=== PATIENT | male | born 1960 | race Caucasian/White ===

== ENCOUNTER → 2017-06-26 | Outpatient (CLI) | payer MEDICARE, OTHER ==
[~2017-06-26] MED LIST: CLONIDINE HCL0.1 MG PO; DAILY VALUE1 EACH PO; METHADONE HCL40 MG PO; OXYCODONE HCL5 MG PO; PERCOCET 5/31 TABLET PO; VALIUM2 MG PO
== END | disposition home or self-care (01) ==
LOC: CDC 12-01 14:30
DX: Z01.810 Encounter for preprocedural cardiovascular examination (principal)
CPT/HCPCS: 93000

== ENCOUNTER 2017-07-11 09:47 | Day surgery (SDC) | payer OTHER ==
[~2017-07-11] VITALS: Ht 180.3 cm; Wt 93.0 kg
[~2017-07-11 09:47] MED LIST changes: +INDERAL20 MG PO; +OXYCODONE HCL E40 MG PO; +VALIUM10 MG PO; -VALIUM2 MG PO
[2017-07-11 10:15] VITALS: BP 103/58
[2017-07-11 16:04] VITALS: BP 116/67
[2017-07-11 19:30] VITALS: BP 108/58
[2017-07-11 23:23] VITALS: BP 91/57
[2017-07-12 03:40] VITALS: BP 95/54
[2017-07-12 07:39] VITALS: BP 108/60
[2017-07-12] MEDS ORDERED: OXYCODONE HCL10 MG PO (08:37)
== END 2017-07-12 11:03 | disposition home or self-care (01) ==
LOC: SDC → 2SOUTH 13:58 → SDC 14:00 → ENRESERV 14:46 → SDC 15:33 → 2EAST 16:03
DX: M24.541 Contracture, right hand (principal); M20.091 Other deformity of right finger(s); M79.644 Pain in right finger(s); G89.29 Other chronic pain; G60.0 Hereditary motor and sensory neuropathy; Z79.891 Long term (current) use of opiate analgesic; F17.200 Nicotine dependence, unspecified, uncomplicated
CPT/HCPCS: 88305; 88311; G0378; J0690; J1100; J1170; J2250; J2405; J3010; J7120; S0020

== ENCOUNTER 2017-10-01 07:02 | Day surgery (SDC) | payer OTHER ==
[~2017-10-01] VITALS: Ht 180.3 cm; Wt 93.0 kg
[~2017-10-01 07:02] MED LIST changes: +OXYCODONE HCL10 MG PO
== END 2017-10-01 08:44 | disposition home or self-care (01) ==
LOC: SDC 07:02
PROC: 3E0T3BZ Introduction of Anesthetic Agent into Peripheral Nerves and Plexi, Percutaneous Approach (ICD-10-PCS; principal; 2017-10-01)
DX: G90.511 Complex regional pain syndrome I of right upper limb (principal); G60.0 Hereditary motor and sensory neuropathy; G62.9 Polyneuropathy, unspecified; G25.0 Essential tremor; K21.9 Gastro-esophageal reflux disease without esophagitis; E66.9 Obesity, unspecified; Z68.28 Body mass index [BMI] 28.0-28.9, adult; F17.210 Nicotine dependence, cigarettes, uncomplicated
CPT/HCPCS: J1030; J2250; J3010

== ENCOUNTER 2017-11-05 10:24 | Day surgery (SDC) | payer OTHER ==
[~2017-11-05] VITALS: Ht 172.7 cm; Wt 88.0 kg
[~2017-11-05 10:24] MED LIST changes: +ELAVIL25 MG PO; -METHADONE HCL40 MG PO; +METHADONE10 MG PO; +NEURONTIN400 MG PO; -OXYCODONE HCL E40 MG PO; +ROXICODONE30 MG PO; -VALIUM10 MG PO; +VALIUM5 MG PO
== END 2017-11-05 12:07 | disposition home or self-care (01) ==
LOC: PAIN 10:24 → SDC 11:15 → PAIN 11:15
PROC: 3E0T3BZ Introduction of Anesthetic Agent into Peripheral Nerves and Plexi, Percutaneous Approach (ICD-10-PCS; principal; 2017-11-05)
DX: G90.511 Complex regional pain syndrome I of right upper limb (principal); M14.611 Charcot's joint, right shoulder; K21.9 Gastro-esophageal reflux disease without esophagitis; R26.9 Unspecified abnormalities of gait and mobility; F17.200 Nicotine dependence, unspecified, uncomplicated; Z79.891 Long term (current) use of opiate analgesic
CPT/HCPCS: J1030; J2250

== ENCOUNTER 2018-01-23 14:00 | Emergency (ER) | payer OTHER ==
[~2018-01-23] VITALS: Ht 180.3 cm; Wt 81.6 kg
[2018-01-23 14:52] VITALS: BP 123/100
== END 2018-01-23 14:53 | disposition home or self-care (01) ==
LOC: EME 14:00
DX: G97.82 Other postprocedural complications and disorders of nervous system (principal); Y84.8 Other medical procedures as the cause of abnormal reaction of the patient, or of later complication, without mention of misadventure at the time of the procedure; M79.2 Neuralgia and neuritis, unspecified; R25.8 Other abnormal involuntary movements; G60.0 Hereditary motor and sensory neuropathy; F32.9 Major depressive disorder, single episode, unspecified; F41.9 Anxiety disorder, unspecified; Z88.5 Allergy status to narcotic agent; F17.200 Nicotine dependence, unspecified, uncomplicated; Z79.891 Long term (current) use of opiate analgesic
CPT/HCPCS: 93005; 99281; 99283